=== PATIENT | female | born 1955 | race Caucasian/White ===

== ENCOUNTER 2021-09-06 13:27 | Emergency (ER) | payer MEDICARE, OTHER, SELFPAY ==
--- NOTE | ~2021-09-06 | XR_ITS ---
EXAMINATION: XR tibia fibula LT 2V DATE: 09/06/2021 13:59 INDICATION: Left lower leg injury and pain. TECHNIQUE: 2 views of left tibia and fibula were obtained. COMPARISON: None. FINDINGS: Bone alignment is normal. No acute fracture. There is plate and screw fixation of calcaneus . There is moderate left knee osteoarthritis. There is mild midfoot osteoarthritis. IMPRESSION: 1. Polyarticular osteoarthritis. Reviewed, dictated and finalized at location [facility] [employer]
[2021-09-06 13:38] VITALS: BP 126/63; PULSE 65; RESP 20; TEMP 36.8; O2SAT 100
--- NOTE | 2021-09-06 13:44 | ED.LOWEXIN ---
HPI - Extremity Injury (Lower) General Chief Complaint: Extremity Injury, Lower Stated Complaint: Left manley pain Time Seen by Provider: 09/06/21 13:45 Source: patient and RN notes reviewed Mode of arrival: ambulatory Limitations: no limitations History of Present Illness HPI Narrative: 66-year-old female presents to the [facility] with left anterior manley pain after tripping on , 6 days ago. States she danced on Sunday when she got . Started having pain to the upper anterior manley after scratching it. Skin is very dry. Bruising along the anterior lower leg. Walks with a normal gait Related Data Home Medications Medication Instructions Recorded Confirmed atorvastatin 20 mg PO DAILY 09/06/21 09/06/21 chlorthalidone 25 mg PO DAILY 09/06/21 09/06/21 diclofenac sodium 75 mg PO BID 09/06/21 09/06/21 duloxetine 60 mg PO DAILY 09/06/21 09/06/21 ergocalciferol (vitamin D2) 1,250 mcg PO WEEKLY 09/06/21 09/06/21 losartan 100 mg PO DAILY 09/06/21 09/06/21 potassium chloride [Klor-Con M20] 20 meq PO DAILY 09/06/21 09/06/21 Allergies Allergy/AdvReac Type Severity Reaction Status Date / Time codeine Allergy Unknown Nausea and Verified 09/06/21 13:52 Vomiting poison reynold extract Allergy Unknown Rash Verified 09/06/21 13:52 poison oak extract Allergy Unknown Rash Verified 09/06/21 13:52 poison sumac extract Allergy Unknown Rash Verified 09/06/21 13:52 Review of Systems Review of Systems: All systems reviewed & are unremarkable except as noted in HPI and below Constitutional: Constitutional: Reports no additional constitutional complaints, Denies chills and Denies fever(s) Eyes: Eyes: Reports no additional eye complaints ENT: Reports system reviewed and no additional complaints, except as documented Cardiovascular: Cardiovascular: Reports no additional cardiovascular complaints Respiratory: Respiratory: Reports no additional respiratory complaints Gastrointestinal: Gastrointestinal: Reports no additional gastrointestinal complaints Musculoskeletal: Musculoskeletal: Reports as per HPI Comments: Bruising left lower leg anterior Integumentary/Breasts: Skin/Breast: Reports as per HPI Comments: Bruising Neurologic: Reports system reviewed and no additional complaints, except as documented Psychiatric: Psychiatric: Reports no additional psychiatric complaints Allergic/Immunologic: Allergic/Immunologic: Reports no additional allergic/immunologic complaints [facility] Past Medical History Medical History (Updated 09/06/21 @ 19:48 by Lesia Salas) Depression High cholesterol History of high blood pressure Social History Social History (Updated 09/06/21 @ 19:47 by Lesia Salas) Living arrangements: with family Gender identity (if verbalized by the patient): Female Comments At the time of my signature, I reviewed and agree with the nursing past medical, surgical, social, and family history. There is no relevant family history pertinent to the patient complaint. Exam Const: General: no acute distress, alert and ill appearing chronically Nutritional Appearance: obese Orientation/consciousness: patient oriented x3 HENMT: Head: normal to inspection Eyes: Pupils: Equal, round and reactive pupils present Neck: Neck: normal visual inspection, no lymphadenopathy and no meningeal signs Chest: Chest palpation & inspection: normal inspection of the chest Resp: Effort & Inspection: normal respiratory effort Cardio: Rate: regular rate Rhythm: regular rhythm Back/Spine/Pelvis: Back: no CVA tenderness Skin: Other: Left anterior leg most of manley covered in a bruise. Minor swelling Neuro: General: patient oriented x3, moves all extremities, no meningeal signs and no focal motor deficits Cranial nerves: Yes Nystagmus not present Speech: normal speech Gait exam (Neuro): Normal gait present Extrem: General: normal to inspection and no pedal edema Psych: Appearance: grossly normal and well moss
== END 2021-09-06 14:30 | disposition home or self-care (01) ==
PROVIDERS: Emergency Provider Nurse Practitioner; PCP Internal Medicine
DX: S80.12XA Contusion of left lower leg, initial encounter (principal); W01.0XXA Fall on same level from slipping, tripping and stumbling without subsequent striking against object, initial encounter; E78.00 Pure hypercholesterolemia, unspecified; I10 Essential (primary) hypertension
CPT/HCPCS: 73590; 99203; G0463